=== PATIENT | male | born 1990 | race Caucasian/White ===

== ENCOUNTER 2018-04-05 06:35 | Emergency (ER) | payer SELFPAY ==
[~2018-04-05] VITALS: Ht 172.7 cm; Wt 134.2 kg
[2018-04-05] MEDS ORDERED: REGLAN10 MG PO (08:53)
[2018-04-05 09:06] VITALS: BP 120/63
== END 2018-04-05 09:07 | disposition home or self-care (01) ==
LOC: EME 06:35
DX: R51 Headache (principal); H53.149 Visual discomfort, unspecified; H73.893 Other specified disorders of tympanic membrane, bilateral; G47.00 Insomnia, unspecified; R19.7 Diarrhea, unspecified
CPT/HCPCS: 99281; 99284